=== PATIENT | female | born 2000 | race Caucasian/White ===

== ENCOUNTER 2019-01-17 09:08 | Emergency (ER) | payer OTHER ==
[2019-01-17] MEDS: LIDOCAINE/MYLANTA 40 ML BTL PO (12:20)
[2019-01-17] MEDS: ONDANSETRON (ODT) 4 MG TAB ODT (12:20)
[2019-01-17 12:24] LABS: URINE BLOOD (Dip) POC Negative (NEGATIVE); URINE GLUCOSE (Dip) POC Negative (NEGATIVE); URINE KETONES (Dip) POC 1+ (NEGATIVE); URINE LEUKOCYTE EST (Dip) POC Negative (NEGATIVE); URINE NITRITE (Dip) POC Negative (NEGATIVE); URINE TOTAL PROTEIN POC 1+ (NEGATIVE)
== END 2019-01-17 13:46 | disposition home or self-care (01) ==
LOC: FTE 09:08
DX: K52.9 Noninfective gastroenteritis and colitis, unspecified (principal)
CPT/HCPCS: 81003; 81025; 99283